=== PATIENT | female | born 1955 | race Caucasian/White ===

== ENCOUNTER 2020-08-29 00:33 | Outpatient (CLI) | payer MEDICARE, MEDICAID, SELFPAY ==
[2020-08-29 18:26] LABS: SARS-CoV-2 RNA PCR Negative
== END 2020-08-29 00:34 | disposition home or self-care (01) ==
LOC: ANHCOVIDDT 00:33
PROVIDERS: Visit Provider Specialist
DX: Z01.812 Encounter for preprocedural laboratory examination (principal); Z20.822 Contact with and (suspected) exposure to COVID-19
CPT/HCPCS: C9803; U0003; U0005

== ENCOUNTER 2020-09-01 00:41 | Day surgery (SDC) | payer MEDICARE, MEDICAID, SELFPAY ==
[2020-08-31 15:04] VITALS: BMI 42.5
[2020-09-01] VITALS (13 sets, daily range): BP systolic 100–158; BP diastolic 57–108; PULSE 50–73; RESP 14–20; TEMP 36.3; O2SAT 94–98
--- NOTE | 2020-09-01 | ECHO_ITS ---
Patient Info Name: Blanca Pritchett Age: 64 years : 1955 Gender: Female Ht: 64 in Wt: 248 lbs BSA: 2.31 m2 HR: 54 bpm Technical Quality: Good Exam Date: 09/01/2020 1:40 PM Exam Location: [facility] Patient Status: Outpatient Admit Date: 09/01/2020 Staff Ordering Physician: Neymar Sheffield MD Education Program Specialist: Jeffrey Weir RDCS, RT Attending Provider: Neymar Sheffield MD Exam Type: CA echo transesophageal Study Info Indications I35.0 - Nonrheumatic aortic (valve) stenosis Complete two-dimensional, color flow and Doppler transesophageal study is performed. Appropriate Use Criteria Aortic valve stenosis. Complications No complications. Summary 1. There is moderately increased left ventricular wall thickness. 2. Left ventricular systolic function is normal with an ejection fraction by Biplane Method of Discs of 60 %. 3. The aortic valve is trileaflet. 4. There is severe aortic valve sclerosis. 5. There is moderate aortic valve stenosis. Left Ventricle Left ventricular chamber dimension is normal. Left ventricular systolic function is normal with an ejection fraction by Biplane Method of Discs of 60 %. There is moderately increased left ventricular wall thickness. Left ventricular septal wall motion is normal. The left ventricular diastolic function is normal. Right Ventricle Right ventricular chamber dimension is normal. Right ventricular systolic function is normal. Left Atria Left atrial chamber dimension is mildly enlarged. Right Atria Right atrial chamber dimension is normal. Atrial Appendage Left atrial appendage is normal with normal velocity, 60 cm/s. Aortic Valve The aortic valve is trileaflet. There is severe aortic valve sclerosis. There is moderate aortic valve stenosis. There is trace aortic valve regurgitation. Aortic valve is heavily calcified but there is significant motion noted on the non coronary cusp. Pulmonic Valve The pulmonic valve is normal. There is no pulmonic valve stenosis. There is no pulmonic regurgitation. Mitral Valve The mitral valve has normal leaflets. There is no mitral valve stenosis. There is trace mitral valve regurgitation. Tricuspid Valve The tricuspid valve leaflets are normal. There is no significant tricuspid valve stenosis. There is no tricuspid valve regurgitation. Pericardium/Pleural The pericardium appears normal. There is no pericardial effusion. Aorta The aortic root size at the sinus of Valsalva is normal. The prox ascending aorta size is normal. Ventricles Name Value Normal LV Fractional Shortening/Ejection Fraction 2D/MM LV EF (BP MOD) 60 % 54-74 Atria Name Value Normal LA/RA Appendage LA Avi Peak Emptying Velocity 60 cm/s Report Signatures
--- NOTE | 2020-09-01 13:21 | P.HP_ITS ---
H&P: HPI History of Present Illness Date/Time: 09/01/20 13:21 64 years old lady with history of hypertension coronary artery disease dyslipidemia, was seen because of shortness breath noted to have severe aortic valve stenosis, she will be admitted to the hospital for elective INDIRA for better evaluation of the severity of aortic valve stenosis. She has chest pain and she has a significant shortness breath, no syncope Chief Complaint: Shortness of breath Narrative: Blanca Pritchett is a 64 year old female [facility] Social History Social History Years smoked: 50 Smoking status: Current every day smoker Tobacco type: cigarettes Living arrangements: with family Gender identity (if verbalized by the patient): Female Sexual Orientation (if Verbalized by the Patient): Straight or Heterosexual Spiritual care concerns: No Meds Home Medications and Allergies Home Medications Medication Instructions Recorded Confirmed Type amlodipine 5 mg PO DAILY 08/31/20 08/31/20 History aspirin 81 mg PO DAILY 08/31/20 08/31/20 History atorvastatin 40 mg PO HS 08/31/20 08/31/20 History furosemide 20 mg PO DAILY 08/31/20 08/31/20 History isosorbide mononitrate 30 mg PO DAILY 08/31/20 08/31/20 History lisinopril 5 mg PO DAILY 08/31/20 08/31/20 History metoprolol succinate 25 mg PO DAILY 08/31/20 08/31/20 History montelukast 10 mg PO HS 08/31/20 08/31/20 History Allergies Allergy/AdvReac Type Severity Reaction Status Date / Time No Known Allergies Allergy Verified 08/31/20 15:09 Vital Signs Vital Signs - 24 hr 09/01/20 12:38 Temperature 36.3 C L Pulse Rate 53 L Respiratory Rate 16 Blood Pressure 118/90 Pulse Oximetry 98 Exam Narrative: Exam Narrative: Awake alert oriented x3 not in acute distress Neck is supple no obvious JVD, no carotid bruit Chest: Good air entry bilaterally, lungs are clear to auscultation and percussion bilaterally Cardiovascular: Regular rate and rhythm, 2/6 systolic murmur noted left sternal border Abdomen: Soft nontender bowel sounds positive Extremities: No edema has good pulses distally bilaterally Assessment and Plan Assessment and plan (1) Severe aortic valve stenosis: Code(s): I35.0 - Nonrheumatic aortic (valve) stenosis Status: Acute Assessment and Plan: Will proceed with INDIRA to better evaluate the severity of aortic valve stenosis consider further treatment as indicated. The procedure was discussed with the patient, risks, benefits, were explained
--- NOTE | 2020-09-01 13:22 | WPDMODSED ---
Moderate Sedation Note-Pt Data Patient Data Allergies Allergy/AdvReac Type Severity Reaction Status Date / Time No Known Allergies Allergy Verified 08/31/20 15:09 Home Medications Medication Instructions Recorded Confirmed Type amlodipine 5 mg PO DAILY 08/31/20 08/31/20 History aspirin 81 mg PO DAILY 08/31/20 08/31/20 History atorvastatin 40 mg PO HS 08/31/20 08/31/20 History furosemide 20 mg PO DAILY 08/31/20 08/31/20 History isosorbide mononitrate 30 mg PO DAILY 08/31/20 08/31/20 History lisinopril 5 mg PO DAILY 08/31/20 08/31/20 History metoprolol succinate 25 mg PO DAILY 08/31/20 08/31/20 History montelukast 10 mg PO HS 08/31/20 08/31/20 History Current Medications: Active Medications Sodium Chloride (Normal Saline Iv) 500 mls @ 100 mls/hr IV CONT .Q5H [facility] Sedation/Anesthesia: No previous sedation/anesthesia problems (including family history). PMFSH Social History Social History Years smoked: 50 Smoking status: Current every day smoker Tobacco type: cigarettes Living arrangements: with family Gender identity (if verbalized by the patient): Female Sexual Orientation (if Verbalized by the Patient): Straight or Heterosexual Spiritual care concerns: No Mod Sed Physical Exam Physical Exam Pre Procedural Exam: Normal: Appearance, Eyes, Ears, Nose, Neck, Throat, Airway, Lungs, Heart Size, Heart Rate, Heart Rhythm, Neuro Exam, Abdomen, Liver, Kidneys, Spleen, Breasts, Genitalia, Extremities and Skin Hours since solid foods: 8 Hours since liquid intake: 8 Internal Medicine - PN: Obj Da Vital Signs Vital Signs: Vital Signs - 24 hr 09/01/20 12:38 Temperature 36.3 C L Pulse Rate 53 L Respiratory Rate 16 Blood Pressure 118/90 Pulse Oximetry 98 Meds/Results Medications: Active Medications Generic Name Dose Route Start Last Admin Trade Name Freq PRN Reason Stop Dose Admin Sodium Chloride 500 mls @ 100 mls/hr 09/01/20 08:00 Normal Saline Iv IV CONT .Q5H [facility] ASA Classification/Sedation ASA Classification/Sedation ASA Class: III Risks: Risks, benefits and alternatives explained and patient/family accepted plan for sedation. Patient re-evaluated immediately prior to sedation.
--- NOTE | 2020-09-01 13:44 | WPDCARDPROC ---
Cardiac Cath Procedure Note Date of procedure:: 09/01/20 Performing physician:: Neymar Sheffield MD Procedure: Transesophageal echocardiogram, and conscious sedation. Starting time is 1:10 p.m. ending time is 1:42 p.m. Intelligence Research Specialist: Dr. Sheffield. History: Miss paez is 64-year-old lady with history of dyslipidemia was noted to have severe aortic stenosis, with shortness breath and chest pain was brought for evaluation of the severity of the aortic valve stenosis Technique: After informed consent of the improve patient's she was in chest Pain Center with monitored setting, and with a setting of conscious sedation, transesophageal echocardiogram probe was inserted advanced to the midesophageal level and subsequently to the gastric level, transgastric views were obtained. The probe then was pulled to the midesophageal level and mid esophageal imaging were obtained. All valves were clearly visualized color flow and spectral Doppler was done across all the valves. At the end the probe was withdrawn patient tolerated posterior no complication. Echocardiographic findings: There is moderate concentric left ventricular hypertrophy with normal left ventricle systolic function, there is moderate aortic valve stenosis but severe calcification on the right coronary cusp and left coronary cusp but significant good mobility of the non coronary cusp correlating with moderate aortic valve stenosis. There is [id number] dilatation of the aortic root, there is moderate aortic valve regurgitation. Summary moderate aortic valve stenosis
--- NOTE | 2020-09-01 16:25 | SUR.PHASEII ---
1615 - All D/C instructions reviewed with patient,all questions answered at this time.
== END 2020-09-01 16:20 | disposition home or self-care (01) ==
PROVIDERS: PCP Family Medicine; Visit Provider Specialist
PROC: (CPT 93312; principal; 2020-09-01 13:00)
DX: I35.2 Nonrheumatic aortic (valve) stenosis with insufficiency (principal); R07.9 Chest pain, unspecified; R06.02 Shortness of breath; F17.210 Nicotine dependence, cigarettes, uncomplicated; Z79.82 Long term (current) use of aspirin
CPT/HCPCS: 93312; 93320; 93325; C9803; J2250; J3010; J7040; U0003; U0005